=== PATIENT | female | born 1980 | race Caucasian/White ===

== ENCOUNTER 2020-09-26 17:45 | Emergency (ER) | payer BC ==
[~2020-09-26] VITALS: Ht 167.7 cm; Wt 71.2 kg
[~2020-09-26 17:45] MED LIST: ALPR.25T; ALPR0.25 PO; BREA1EAC5 MC; CEPH-38 PO; CTLP20T; DCS100C PO; HYDR-3720 PO; HYDR1TAB75 PO; IBP800T PO; METO-354 PO; ONDN4T PO; OXYC1TAB87 PO; POTASSIUM; PREN1TAB39 PO; TRAM-21 PO; [UNRECOGNIZED DRUG - CODE]
[2020-09-26] MEDS ORDERED: fentaNYL INJ 100 MCG/2 ML AMP IVP ONE (18:15)
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
[2020-09-26] MEDS ORDERED: IOHEXOL 350 MG/ML 100 ML (OMNIPAQUE 350) VIAL IV ONE (19:00)
[2020-09-26] MEDS ORDERED: NS 100 ML (IVPB) BAG IV ONE (19:00)
[2020-09-26] MEDS ORDERED: HOLD METFORMIN - RECEIVED CONTRAST 20 ML VIAL IV SCH (19:00)
[2020-09-26] MEDS ORDERED: KETOROLAC 30 MG/ML VIAL IVP ONE (19:15)
[2020-09-26] MEDS ORDERED: KETOROLAC 30 MG/ML VIAL ONE (19:15)
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
[2020-09-26] MEDS ORDERED: CYCL10TA9 PO (20:11)
[2020-09-26] MEDS ORDERED: ORPHENADRINE 60 MG/2 ML (NORFLEX) AMP (ED ONLY) IV ONE (20:15)
[2020-09-26 21:31] VITALS: BP 115/76
== END 2020-09-26 20:32 | disposition home or self-care (01) ==
LOC: EDUNIT# 17:45 → ER 17:48
DX: S20.20XA Contusion of thorax, unspecified, initial encounter (principal); W23.1XXA Caught, crushed, jammed, or pinched between stationary objects, initial encounter
CPT/HCPCS: 71260; 74177